=== PATIENT | male | born 1995 ===

== ENCOUNTER 2020-01-05 11:18 | Emergency (ER) | payer OTHER ==
[~2020-01-05] VITALS: Ht 157.5 cm; Wt 54.4 kg
[~2020-01-05 11:18] MED LIST: SEPTRA 80-400 T1 TAB PO; ZITHROMAX TRI-500 MG PO
[2020-01-05] MEDS ORDERED: AIRBORNE EFFER1 EACH PO (16:00)
[2020-01-05] MEDS ORDERED: PEPCID AC20 MG PO (16:00)
== END 2020-01-05 16:26 | disposition home or self-care (01) ==
LOC: ER 11:18
DX: N39.0 Urinary tract infection, site not specified (principal); B34.9 Viral infection, unspecified; Z03.818 Encounter for observation for suspected exposure to other biological agents ruled out; R50.9 Fever, unspecified